=== PATIENT | male | born 1965 | race Caucasian/White ===

== ENCOUNTER 2018-09-28 10:26 | Observation (INO) | payer OTHER ==
--- NOTE | 2018-09-28 10:56 | ERPHSYRPT ---
- History of Present Illness Time Seen by Provider: 09/28/18 10:46 Historian: patient Exam Limitations: no limitations Patient Subjective Stated Complaint: pt here for chest pain to left side of chest, that occ. goes to left arm and jaw, pain off and on for several days now. nitro helps at times, this bout of cp started while pt was shopping at [email or web address], Triage Nursing Assessment: pt alert, resp easy,skin w/d/p. slight edema to lower left leg, chest clear Physician History: The patient is a 53-year-old male complaining of intermittent chest pain for the last 3 or 4 days. Typically the chest pain will be like a sharp knife sticking him in the left side of his chest. The pain will last about 5 minutes. He may have 2 or 3 episodes in one day. He'll feel slightly short of breath. He denies nausea or sweating. Sometimes the chest pain will radiate to his left jaw and left arm. Just before arrival he was on a scooter and [facility] when he had another episode of chest pain. He took one nitroglycerin without much relief. His chest pain was initially a 9 out of 10. After 1 nitroglycerin his chest pain was a 5 out of 10. He did not take any more nitroglycerin. He took a baby aspirin this morning. His past medical history is significant for diabetes, high cholesterol, CAD, cardiac stent placement, back pain, back surgery. He had been taking a medicine for hypertension but stopped taking it last week. He did not tell his local doctor nor did he tell his plastic finisher about this. Timing/Duration: day(s) (4), intermittent, sudden, improved Activities at Onset: none Quality: sharpness, stabbing Location: substernal Chest Pain Radiation: neck, arm Severity of Pain-Max: severe Severity of Pain-Current: moderate Modifying Factors: Improves With: nitroglycerin Associated Symptoms: shortness of breath, No nausea, No vomiting, No cough, No diaphoresis Prior Chest Pain/Cardiac Workup: angina Nitro Today/Relief: 0.4 mg x 1, provided at home Aspirin Treatment Today: 81 mg x 1 Allergies/Adverse Reactions: bupropion HCl [From Wellbutrin] Allergy (Severe, Verified 09/28/18 10:39) Hives Home Medications: Aspirin 81 mg PO DAILY 10/31/14 [History] Metformin HCl 1000 mg [Glucophage 1000 MG] 1,000 mg PO BID 07/31/14 [History] Aspirin/Acetaminophen/Caffeine [Headache Relief Tablet] 2 each PO .PRN 11/28/16 [History] Glyburide Micronized 3 mg [Glynase 3 MG] 6 mg PO BID 11/28/16 [History] Insulin Glargine [Lantus Insulin] 20 unit SQ DAILY 11/28/16 [History] Atorvastatin Calcium [Lipitor] 40 mg DAILY 09/28/18 [History] Hydrocodone Bit/Acetaminophen [[place] 10-325 Tablet] 1 ea QID 09/28/18 [History] Insulin Glargine,Hum.rec.anlog [Basaglar Kwikpen U-100] 20 units DAILY 09/28/18 [History] Hx Influenza Vaccination/Date Given: No Hx Pneumococcal Vaccination/Date Given: No Immunizations Up to Date: Yes - Review of Systems Constitutional: No Fever, No Chills Eyes: No Symptoms Ears, Nose, & Throat: No Symptoms Respiratory: No Cough, No Dyspnea Cardiac: Chest Pain Abdominal/Gastrointestinal: No Abdominal Pain, No Nausea, No Vomiting, No Diarrhea Genitourinary Symptoms: No Dysuria Musculoskeletal: No Back Pain, No Neck Pain Skin: No Rash Neurological: No Dizziness, No Focal Weakness, No Sensory Changes Psychological: No Symptoms Endocrine: No Symptoms Hematologic/Lymphatic: No Symptoms Immunological/Allergic: No Symptoms All Other Systems: Reviewed and Negative - Past Medical History Pertinent Past Medical History: Yes Neurological History: Migraines ENT History: No Pertinent History Cardiac History: Hypertension, Other Respiratory History: No Pertinent History Endocrine Medical History: Diabetes Type II Musculoskeletal History: Degenerative Disk Disease, Osteoarthritis GI Medical History: No Pertinent History History: No Pertinent History Psycho-Social History: Anxiety, Depression Male Reproductive Disorders: No Pertinent History Other Medical History: chest pain, he sees Dr. Ashraf - Past Surgical History Past Surgical History: Yes Neuro Surgical History: No Pertinent History Cardiac: No Pertinent History Respiratory: No Pertinent History Gastrointestinal: No Pertinent History Genitourinary: No Pertinent History Musculoskeletal: Other Male Surgical History: Vasectomy Other Surgical History: Tonsillectomy, discoscopy - Social History Smoking Status: Current every day smoker How long have you smoked: 30yr Exposure to second hand smoke: Yes Drug Use: none Patient Lives Alone: No - Nursing Vital Signs Nursing Vital Signs: Initial Vital Signs Temperature 98 F 09/28/18 10:27 Pulse Rate 90 09/28/18 10:27 Respiratory Rate 16 09/28/18 10:27 Blood Pressure 163/99 09/28/18 10:27 O2 Sat by Pulse Oximetry 99 09/28/18 10:27 Pain Scale Pain Intensity 1 - Physical Exam General Appearance: no apparent distress Eye Exam: PERRL/EOMI, eyes nml inspection Ears, Nose, Throat Exam: normal ENT inspection, moist mucous membranes Neck Exam: normal inspection, non-tender, supple, full range of motion Respiratory Exam: normal breath sounds, lungs clear, No respiratory distress Cardiovascular Exam: regular rate/rhythm, normal heart sounds Gastrointestinal/Abdomen Exam: soft, No tenderness, No mass Rectal Exam: not done Back Exam: normal inspection, No CVA tenderness, No vertebral tenderness Extremity Exam: normal inspection, normal range of motion Neurologic Exam: alert, oriented x 3, cooperative, normal mood/affect, sensation nml, No motor deficits Skin Exam: normal color, warm, dry SpO2 Interpretation: normal SpO2: 99 Oxygen Delivery: Room Air - Course EKG Interpreted by Me: RATE, Sinus Rhythm, NORMAL AXIS, NORMAL INTERVALS, NORMAL QRS, NORMAL ST-T - Radiology Exams Chest X-ray Interpretation: Interpreted by me, Negative (comp 1V chest .) Ordered Tests: Active Orders 24 hr Category Date Time Status Radio Personality STAT Care 09/28/18 11:04 Active Clean Catch Urine Specimen STAT Care 09/28/18 11:03 Active EKG-ER Only STAT Care 09/28/18 11:03 Active IV Insertion STAT Care 09/28/18 11:03 Active Pulse Oximetry (ED) STAT Care 09/28/18 11:03 Active CHEST 2 VIEWS (PA AND LAT) Stat Exams 09/28/18 11:03 Ordered CBC W DIFF Stat Lab 09/28/18 10:30 Completed CMP Stat Lab 09/28/18 10:30 Received D-DIMER QUANTITATION Stat Lab 09/28/18 10:30 Completed Manual Differential NC Stat Lab 09/28/18 10:30 Completed NT PRO BNP Stat Lab 09/28/18 10:30 Received PROTIME WITH INR Stat Lab 09/28/18 10:30 Completed TROPONIN Q3H Lab 09/28/18 10:30 Received TROPONIN Q3H Lab 09/28/18 14:15 Ordered TROPONIN Q3H Lab 09/28/18 17:15 Ordered TROPONIN Q3H Lab 09/28/18 20:15 Ordered TROPONIN Q3H Lab 09/28/18 23:15 Ordered Urine Triage Profile Stat Lab 09/28/18 11:25 Received Medication Summary Discontinued Medications Generic Name Dose Route Start Last Admin Trade Name Freq PRN Reason Stop Dose Admin Aspirin 243 mg 09/28/18 11:03 09/28/18 11:06 Baby Aspirin 81 Mg Chew PO 09/28/18 11:04 243 mg STAT ONE Administration Nitroglycerin 0.4 mg 09/28/18 11:03 09/28/18 11:06 Nitrostat 0.4 Mg (Ed) SL 09/28/18 11:04 0.4 mg STAT ONE Administration Nitroglycerin 0.4 mg 09/28/18 11:23 09/28/18 11:28 Nitrostat 0.4 Mg (Ed) SL 09/28/18 11:24 0.4 mg STAT ONE Administration Lab/Rad Data: Laboratory Result Diagrams 09/28/18 10:30 09/28/18 10:30 Laboratory Results 09/28/18 09/28/18 09/28/18 Range/Units 11:25 10:30 10:30 WBC (4.0-10.5) K/mm3 RBC (4.1-5.6) M/mm3 Hgb (12.5-18.0) gm/dl Hct (42-50) % MCV (78-100) fl MCH (26-32) pg MCHC (32-36) g/dl RDW (11.5-14.0) % Plt Count (150-450) K/mm3 MPV (6-9.5) fl Segmented Neutrophils (36.-66.) % Band Neutrophils (0.0-2.0) % Lymphocytes (Manual) (24-44) % Monocytes (Manual) (0.0-12.0) % Basophils (Manual) (0.0-1.0) % Platelet Estimate (NORMAL) RBC Morphology PT 11.0 (8.83-12.87) SECONDS INR 0.95 (0.8-3.0) D-Dimer 219 (215-500) ng/mL Sodium (137-145) mmol/L Potassium (3.5-5.1) mmol/L Chloride (98-107) mmol/L Carbon Dioxide (22-30) mmol/L Anion Gap (5-15) MEQ/L BUN (9-20) mg/dL Creatinine (0.66-1.25) mg/dL Estimated GFR ML/MIN Glucose (74-106) mg/dL Calcium (8.4-10.2) mg/dL Total Bilirubin (0.2-1.3) mg/dL AST (17-59) U/L ALT (0-50) U/L Alkaline Phosphatase (38-126) U/L Troponin I < 0.012 (0.000-0.034) ng/mL NT-Pro-B Natriuret Pep (0-900) pg/mL Serum Total Protein (6.3-8.2) g/dL Albumin (3.5-5.0) g/dL Urine Opiates Level POSITIVE (NEGATIVE) Ur Methadone NEGATIVE (NEGATIVE) Urine Barbiturates NEGATIVE (NEGATIVE) Ur Phencyclidine (PCP) NEGATIVE (NEGATIVE) Urine Amphetamine NEGATIVE (NEGATIVE) U Benzodiazepine Level NEGATIVE (NEGATIVE) Urine Cocaine NEGATIVE (NEGATIVE) Urine Marijuana (THC) NEGATIVE (NEGATIVE) 09/28/18 09/28/18 Range/Units 10:30 10:30 WBC 8.3 (4.0-10.5) K/mm3 RBC 4.51 (4.1-5.6) M/mm3 Hgb 13.7 (12.5-18.0) gm/dl Hct 40.1 L (42-50) % MCV 88.9 (78-100) fl MCH 30.4 (26-32) pg MCHC 34.2 (32-36) g/dl RDW 12.8 (11.5-14.0) % Plt Count 295 (150-450) K/mm3 MPV 9.9 H (6-9.5) fl Segmented Neutrophils 52 (36.-66.) % Band Neutrophils 2 (0.0-2.0) % Lymphocytes (Manual) 35 (24-44) % Monocytes (Manual) 10 (0.0-12.0) % Basophils (Manual) 1 (0.0-1.0) % Platelet Estimate NORMAL (NORMAL) RBC Morphology NORMAL PT (8.83-12.87) SECONDS INR (0.8-3.0) D-Dimer (215-500) ng/mL Sodium 143 (137-145) mmol/L Potassium 3.6 (3.5-5.1) mmol/L Chloride 104 (98-107) mmol/L Carbon Dioxide 27 (22-30) mmol/L Anion Gap 14.3 (5-15) MEQ/L BUN 12 (9-20) mg/dL Creatinine 0.56 L (0.66-1.25) mg/dL Estimated GFR > 60.0 ML/MIN Glucose 167 H (74-106) mg/dL Calcium 9.2 (8.4-10.2) mg/dL Total Bilirubin 0.40 (0.2-1.3) mg/dL AST 17 (17-59) U/L ALT 26 (0-50) U/L Alkaline Phosphatase 103 (38-126) U/L Troponin I (0.000-0.034) ng/mL NT-Pro-B Natriuret Pep 95.1 (0-900) pg/mL Serum Total Protein 7.1 (6.3-8.2) g/dL Albumin 4.4 (3.5-5.0) g/dL Urine Opiates Level (NEGATIVE) Ur Methadone (NEGATIVE) Urine Barbiturates (NEGATIVE) Ur Phencyclidine (PCP) (NEGATIVE) Urine Amphetamine (NEGATIVE) U Benzodiazepine Level (NEGATIVE) Urine Cocaine (NEGATIVE) Urine Marijuana (THC) (NEGATIVE) - Progress Progress: improved Air Movement: good Progress Note: 09/28/18 11:25 The patient's chest pain was a 7 of 10. Patient was given 1 nitroglycerin 0.4 mg SL. After 5 minutes, the patient's chest pain was 1 of 10. Patient is given one more nitroglycerin. 09/28/18 11:40 After the second nitroglycerin 0.4 mg SL, the patient's chest pain is now completely resolved. 09/28/18 11:59 I discussed the patient's examination and findings with Dr. Hutton. Dr. Hutton prefers to have the patient stay in the hospital for a rule out chest pain. The patient agrees to stay. Blood Culture(s) Obtained: No Antibiotics given: No Discussed with : Brennen Will see patient in: hospital (observation) Counseled pt/family regarding: lab results, diagnosis, rad results - Departure Time of Disposition: 11:59 Departure Disposition: Observation (per Dr Hutton) Clinical Impression: Chest pain Condition: Stable Critical Care Time: No Referrals: MARGARITA HUTTON [Primary Care Provider] -
[2018-09-28] MEDS ORDERED: Nitrostat 0.4 MG (ED) SL ONE ×2 (11:03→11:23)
[2018-09-28] MEDS ORDERED: BABY ASPIRIN 81 MG CHEW PO ONE (11:03)
[2018-09-28 11:14] LABS: Hematocrit 40.1 % (42-50); Hemoglobin 13.7 gm/dl (12.5-18.0); Mean Cell Volume 88.9 fl (78-100); Mean Corpuscular Hemoglobin 30.4 pg (26-32); Mean Corpuscular Hgb Concent. 34.2 g/dl (32-36); Mean Platelet Volume 9.9 fl (6-9.5); Platelet Count 295 K/mm3 (150-450); Red Blood Count 4.51 M/mm3 (4.1-5.6); Red Cell Distribution Width 12.8 % (11.5-14.0); White Blood Count 8.3 K/mm3 (4.0-10.5)
[2018-09-28 11:30] LABS: INR 0.95 (0.8-3.0)
[2018-09-28 11:41] LABS: ALBUMIN 4.4 g/dL (3.5-5.0); ALKALINE PHOSPHATASE 103 U/L (38-126); ANION GAP 14.3 MEQ/L (5-15); BLOOD UREA NITROGEN 12 mg/dL (9-20); CHLORIDE 104 mmol/L (98-107); Calcium 9.2 mg/dL (8.4-10.2); Carbon Dioxide 27 mmol/L (22-30); Creatinine 1 0.56 mg/dL (0.66-1.25); Glucose 167 mg/dL (74-106); NT PRO BNP 95.1 pg/mL (0-900); Potassium 3.6 mmol/L (3.5-5.1); SGOT/AST 17 U/L (17-59); SGPT/ALT 26 U/L (0-50); SODIUM 143 mmol/L (137-145); Total Protein 7.1 g/dL (6.3-8.2)
[2018-09-28 11:45] LABS: Amphetamine,Urine NEGATIVE (NEGATIVE); Barbiturate,Urine NEGATIVE (NEGATIVE); Benzodiazepine,Urine NEGATIVE (NEGATIVE); Cocaine,Urine NEGATIVE (NEGATIVE); Methadone,Urine NEGATIVE (NEGATIVE); Opiate,Urine POSITIVE (NEGATIVE); PCP,Urine NEGATIVE (NEGATIVE); THC,Urine NEGATIVE (NEGATIVE)
[2018-09-28 11:51] LABS: BAND 2 % (0.0-2.0); Basophil 1 % (0.0-1.0); Lymphocytes 35 % (24-44); Monocyte 10 % (0.0-12.0); Neutrophils 52 % (36.-66.); Platelet Estimate NORMAL (NORMAL); Total Cells Counted 100
[2018-09-28] MEDS ORDERED: Senokot-S Tablet PO PRN (12:22)
[2018-09-28] MEDS ORDERED: Nitrostat 0.4 MG Tablet SL PRN (12:22)
[2018-09-28] MEDS ORDERED: TYLENOL 325 MG PO PRN (12:22)
[2018-09-28] MEDS ORDERED: MILK OF MAGNESIA 30 ML PO PRN (12:22)
[2018-09-28] MEDS ORDERED: MAALOX ES 30 ML UNIT DOSE PO PRN (12:22)
[2018-09-28] MEDS ORDERED: Zofran 4 MG/2 ML VIAL IV PRN (12:22)
[2018-09-28] MEDS ORDERED: Nicoderm CQ 21 MG TOP SCH (13:00)
[2018-09-28] MEDS ORDERED: CAFFEINE PO SCH (14:15)
[2018-09-28] MEDS ORDERED: ACETAMINOPHEN PO SCH (14:15)
[2018-09-28] MEDS ORDERED: ASPIRIN PO SCH (14:15)
[2018-09-28] MEDS ORDERED: NovoLOG Insulin SQ PRN (16:36)
[2018-09-28] MEDS: Glynase 3 MG PO SCH (16:55)
[2018-09-28] MEDS: Glucophage 500 MG PO SCH (16:55)
[2018-09-28] MEDS: Norco 10/325 MG Tablet PO SCH ×2 (16:56→19:13)
[2018-09-28] MEDS ORDERED: Norco 10/325 MG Tablet PO SCH (17:00)
[2018-09-28] MEDS ORDERED: Lantus Insulin SQ SCH (18:00)
--- NOTE | 2018-09-28 21:58 | XRAY ---
Indication: Left sided chest pain 1 year. Comparison: February 07, 2008. PA/lateral chest again demonstrates normal heart and lungs. Bony thorax intact again with mild degenerative changes and old left clavicle fracture. No new/acute findings.
[2018-09-28] MEDS ORDERED: ZOCOR 20MG PO SCH (22:00)
[2018-09-28] MEDS ORDERED: NON-FORMULARY ITEM (Metformin Hcl 1000 Mg [Glucophage 1000 Mg] 1,000 MG) PO SCH (22:00)
[2018-09-29] MEDS: Norco 10/325 MG Tablet PO SCH ×3 (03:22→09:32)
[2018-09-29 04:06] VITALS: O2SAT 94
[2018-09-29 05:42] LABS: Risk Ratio 3.9
[2018-09-29] MEDS: Glucophage 500 MG PO SCH (08:04)
[2018-09-29] MEDS: Glynase 3 MG PO SCH (08:04)
[2018-09-29 08:09] VITALS: BP 113/67; PULSE 76
--- NOTE | 2018-09-29 09:13 | PCM.DCORD ---
- Discharge Discharge Date: 09/29/18 Condition: Good Prescriptions: Continue Metformin HCl 1000 mg [Glucophage 1000 MG] 1,000 mg PO BID Aspirin 81 mg PO DAILY Glyburide Micronized 3 mg [Glynase 3 MG] 6 mg PO BID Insulin Glargine [Lantus Insulin] 20 unit SQ EVENING MEAL Aspirin/Acetaminophen/Caffeine [Headache Relief Tablet] 2 each PO .PRN Hydrocodone Bit/Acetaminophen [[place] 10-325 Tablet] 1 ea QID Atorvastatin Calcium [Lipitor] 40 mg PO DAILY Instructions: Angina (DC) Additional Instructions: Keep appointment on October [address] Hutton Follow up with: MARGARITA HUTTON [Primary Care Provider] - Call for Appointment Forms: Patient Portal Information
[2018-09-29] MEDS ORDERED: Ecotrin 325 MG PO SCH (10:00)
[2018-09-29] MEDS ORDERED: NON-FORMULARY ITEM (Aspirin [Aspirin] 81 MG) PO SCH (10:00)
[2018-09-29] MEDS ORDERED: ECOTRIN 81 MG PO SCH (10:00)
--- NOTE | 2018-10-02 13:57 | SSS ---
DISCHARGE DIAGNOSIS: CHEST PAIN. HOSPITAL COURSE: The patient is a 53 year-old white male with history of diabetes. 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 He has recently seen him in the past couple of months and was told that he has angina. He has an appointment to see his icing and glaze maker the third week of October. The patient reports that he took 1 Nitro before coming in and it did relieve the pain somewhat but he felt due to the severity of the pain that he should come on in. He was given aspirin and two more Nitro in the emergency room which resolved the pain. He has been pain free since that time. PAST MEDICAL HISTORY: Significant for diabetes mellitus type 2 and hyperlipidemia. HOME MEDICATIONS: Aspirin 81 mg a day, Metformin 1,000 mg b.i.d., aspirin 81 mg daily, Glyburide 6 mg b.i.d., Lantus 20 units daily, Lipitor 40 mg a day, PRN Truman and Basaglar 20 units a day. ALLERGIES: BUPROPION HCL. PHYSICAL EXAMINATION: The patient's vital signs on admission showed a temperature 98F, pulse of 90, respiratory rate 16, blood pressure 163/99. O2 saturation 99%. HEENT: Normocephalic, atraumatic. Pupils equal round reactive to light. Extraocular movements intact. Oropharynx is pink and moist. NECK: Supple without lymphadenopathy, thyromegaly or JVD. CHEST: Clear to auscultation. HEART: Regular rate and rhythm without murmurs, rubs or gallops. ABDOMEN: Soft. No palpable masses. EXTREMITIES: Without clubbing, cyanosis or edema. NEUROLOGIC: The patient is alert and oriented x3. LAB DATA AND TESTS: Laboratory studies revealed lipid panel showing LDL of 75, HDL 33, total cholesterol 128. Troponins have all been less than 0.012. Hemoglobin A1C was 8.78. CBC was normal. Metabolic panel showed nonfasting glucose of 167, BUN 12, creatinine 0.56. Metabolic panel was otherwise entirely normal. Urine drug screen was positive for opiates which the patient is currently taking, Truman on a PRN basis. His D-dimer was 219. International normalized ratio was 0.95. His EKG showed him to be in sinus rhythm with no acute changes noted. The patient was felt to be ready for discharge home at this time. He is to continue to take his home medications and instructed to take up to 3 Nitro and 5 baby aspirin at a time should he have recurrence of his chest pain. If he has pain beyond that he is to return to the emergency room. He has an appointment to see me in follow up on 10/08/2018 and an appointment with his icing and glaze maker later in the month of October as well.
== END 2018-09-29 09:35 | disposition home or self-care (01) ==
LOC: ED 10:26 → MED SURG 12:20
PROVIDERS: ADMIT Family Medicine; ATTEND Family Medicine
DX: R07.9 Chest pain, unspecified (principal); I20.9 Angina pectoris, unspecified; E11.9 Type 2 diabetes mellitus without complications; Z79.84 Long term (current) use of oral hypoglycemic drugs; Z79.899 Other long term (current) drug therapy
CPT/HCPCS: 36000; 36415; 71046; 80053; 80061; 80307; 82962; 83036; 83721; 83880; 84484; 85025; 85379; 85610; 93005; 93041; 93268; 99285; G0378; A9270-GY

== ENCOUNTER 2021-01-12 08:31 | Day surgery (SDC) | payer MEDICARE ==
[2021-01-12] MEDS ORDERED: LIDOCAINE HCL 2% 100 MG/5 ML IJ ONE (08:32)
[2021-01-12] MEDS ORDERED: Depo-Medrol 40 MG/ML IM ONE (08:32)
[2021-01-12] MEDS ORDERED: Xylocaine 1% Vial 30 ML PF IJ ONE (08:32)
[2021-01-12] MEDS ORDERED: DIPRIVAN 200 MG/20 ML IV ONE (09:30)
--- NOTE | 2021-01-12 10:08 | XRAY ---
11 seconds fluoroscopy time in surgery for bilateral L3-S1 MBB.
--- NOTE | 2021-01-12 10:18 | XRAY ---
Indication: Bilateral L3-S1 MBB. Intraoperative fluoroscopy provided for 11 seconds. 2 digital spot images submitted for interpretation demonstrates posterior needle tips projecting over the expected left and right L3-S1 nerve roots. Correlate with intraoperative findings/report. Incidental bilateral L3-L4 posterior pedicle screws/spinal rods.
[2021-01-12] MEDS ORDERED: Lactated Ringers 1,000 ML IV ONE (16:09)
== END 2021-01-12 09:52 | disposition home or self-care (01) ==
LOC: SDC-PAIN 08:31
PROVIDERS: ATTEND Psychiatry & Neurology Pain Medicine
DX: M47.816 Spondylosis without myelopathy or radiculopathy, lumbar region (principal); E11.9 Type 2 diabetes mellitus without complications; I10 Essential (primary) hypertension; I25.10 Atherosclerotic heart disease of native coronary artery without angina pectoris; E78.5 Hyperlipidemia, unspecified; F41.8 Other specified anxiety disorders; Z79.899 Other long term (current) drug therapy
CPT/HCPCS: 64493; 64494; 64495; 72100; 77002; 82947; J1030; J2001; J2704

== ENCOUNTER 2021-02-23 07:24 | Day surgery (SDC) | payer MEDICARE ==
[2021-02-23] MEDS ORDERED: BUPIVACAINE 0.5% VIAL IJ ONE (07:25)
[2021-02-23] MEDS ORDERED: Depo-Medrol 40 MG/ML IM ONE (07:25)
[2021-02-23] MEDS ORDERED: DIPRIVAN 200 MG/20 ML IV ONE (08:45)
--- NOTE | 2021-02-23 09:36 | XRAY ---
Indication: Bilateral L3-S1 MBB. Intraoperative fluoroscopy provided for 18 seconds. Single digital spot image submitted for interpretation demonstrates posterior needle tips projecting over the expected left and right L3-S1 nerve roots. Correlate with intraoperative findings/report. Incidental bilateral L3-L4 posterior fusion hardware.
--- NOTE | 2021-02-23 10:47 | XRAY ---
18 seconds fluoroscopy time in surgery for bilateral L3-S1 MBB.
[2021-02-23] MEDS ORDERED: Lactated Ringers 1,000 ML IV ONE (16:17)
== END 2021-02-23 09:27 | disposition home or self-care (01) ==
LOC: SDC-PAIN 07:24
PROVIDERS: ATTEND Psychiatry & Neurology Pain Medicine
DX: M47.816 Spondylosis without myelopathy or radiculopathy, lumbar region (principal); I10 Essential (primary) hypertension; I25.10 Atherosclerotic heart disease of native coronary artery without angina pectoris; F41.9 Anxiety disorder, unspecified; F32.9 Major depressive disorder, single episode, unspecified; E78.5 Hyperlipidemia, unspecified; Z79.899 Other long term (current) drug therapy
CPT/HCPCS: 64493; 64494; 64495; 72020; 77002; 82947; J1030; J2704

== ENCOUNTER 2021-10-26 07:46 | Day surgery (SDC) | payer MEDICARE ==
[2021-10-26] MEDS ORDERED: Depo-Medrol 40 MG/ML IM ONE (07:47)
[2021-10-26] MEDS ORDERED: Sodium Chloride 0.9% 10 ML FLUSH Syringe IJ ONE (07:47)
[2021-10-26] MEDS ORDERED: DIPRIVAN 200 MG/20 ML IV ONE (09:07)
--- NOTE | 2021-10-26 10:02 | XRAY ---
Indication: Right L4-S1 transforaminal PAVEL. Intraoperative fluoroscopy provided for 42 seconds. 4 digital spot image submitted for interpretation demonstrates posterior needle tips projecting over the right L4 and L5 nerve roots. Small amount of contrast injected for needle tip placement. Correlate with intraoperative findings/report. Incidental bilateral L3-L4 posterior spinal fusion hardware.
[2021-10-26] MEDS ORDERED: Lactated Ringers 1,000 ML IV ONE (10:14)
--- NOTE | 2021-10-26 10:30 | XRAY ---
42 seconds of fluoroscopy was used in surgery for a right L4-S1 transforaminal PAVEL.
== END 2021-10-26 09:35 | disposition home or self-care (01) ==
LOC: SDC-PAIN 07:46
PROVIDERS: ATTEND Psychiatry & Neurology Pain Medicine
DX: M54.16 Radiculopathy, lumbar region (principal); I10 Essential (primary) hypertension; E78.5 Hyperlipidemia, unspecified; E11.9 Type 2 diabetes mellitus without complications; Z79.899 Other long term (current) drug therapy
CPT/HCPCS: 64483; 64484; 72100; 77003; 82947; J1030; J2704; Q9966

== ENCOUNTER 2021-11-23 07:55 | Day surgery (SDC) | payer MEDICARE ==
[2021-11-23] MEDS ORDERED: Xylocaine 1% Vial 30 ML PF IJ ONE (07:56)
[2021-11-23] MEDS ORDERED: BUPIVACAINE 0.5% VIAL IJ ONE (07:56)
[2021-11-23] MEDS ORDERED: Depo-Medrol 40 MG/ML IM ONE (07:56)
[2021-11-23] MEDS ORDERED: Lactated Ringers 1,000 ML IV ONE (09:04)
[2021-11-23] MEDS ORDERED: DIPRIVAN 200 MG/20 ML IV ONE ×2 (09:30→09:42)
--- NOTE | 2021-11-23 10:22 | XRAY ---
Indication: Right L3-S1 RFA. Intraoperative fluoroscopy provided for 38 seconds. 4 digital spot images submitted for interpretation demonstrates posterior needle tips projecting over the expected right L3-S1 nerve root. Correlate with intraoperative findings/report. Incidental bilateral L3-L4 posterior spinal fusion hardware.
--- NOTE | 2021-11-23 10:33 | XRAY ---
38 seconds fluoroscopy time in surgery for right L3-S1 RFA.
== END 2021-11-23 10:06 | disposition home or self-care (01) ==
LOC: SDC-PAIN 07:55
PROVIDERS: ATTEND Psychiatry & Neurology Pain Medicine
DX: M47.816 Spondylosis without myelopathy or radiculopathy, lumbar region (principal); E11.9 Type 2 diabetes mellitus without complications; I10 Essential (primary) hypertension; Z79.899 Other long term (current) drug therapy
CPT/HCPCS: 64635; 64636; 72100; 77002; 82947; J1030; J2001; J2704

== ENCOUNTER 2021-12-07 07:56 | Day surgery (SDC) | payer MEDICARE ==
[2021-12-07] MEDS ORDERED: Xylocaine 1% Vial 30 ML PF IJ ONE (08:55)
[2021-12-07] MEDS ORDERED: BUPIVACAINE 0.5% VIAL IJ ONE (08:55)
[2021-12-07] MEDS ORDERED: Depo-Medrol 40 MG/ML IM ONE (08:55)
[2021-12-07] MEDS ORDERED: Lactated Ringers 1,000 ML IV ONE (09:00)
[2021-12-07] MEDS ORDERED: DIPRIVAN 200 MG/20 ML IV ONE ×2 (09:22→09:31)
--- NOTE | 2021-12-07 11:28 | XRAY ---
Indication: Left L3-S1 RFA. Intraoperative fluoroscopy provided for 59 seconds. 3 digital spot image submitted for interpretation demonstrates posterior needle tips projecting over the expected left L3-S1 nerve roots. Correlate with intraoperative findings/report. Incidental bilateral L3-L4 posterior spinal fusion hardware.
--- NOTE | 2021-12-07 12:30 | XRAY ---
59 second of fluoroscopy was used in surgery for a left L3-S1 RFA.
== END 2021-12-07 10:00 | disposition home or self-care (01) ==
LOC: SDC-PAIN 07:56
PROVIDERS: ATTEND Psychiatry & Neurology Pain Medicine
DX: M47.819 Spondylosis without myelopathy or radiculopathy, site unspecified (principal); E11.9 Type 2 diabetes mellitus without complications; I10 Essential (primary) hypertension; Z79.899 Other long term (current) drug therapy
CPT/HCPCS: 64635; 64636; 72100; 77002; 82947; J1030; J2001; J2704

== ENCOUNTER 2023-12-12 08:59 | Day surgery (SDC) | payer MEDICARE ==
[2023-12-12] MEDS ORDERED: BUPIVACAINE 0.5% VIAL IJ ONE (09:00)
[2023-12-12] MEDS ORDERED: LIDOCAINE HCL 1% 50 MG/5 ML VL PF IJ ONE (09:00)
[2023-12-12] MEDS ORDERED: Depo-Medrol 40 MG/ML IM ONE (09:00)
[2023-12-12] MEDS ORDERED: DIPRIVAN 200 MG/20 ML IV ONE ×2 (12:23→12:41)
[2023-12-12] MEDS ORDERED: Lactated Ringers 1,000 ML IV ONE (15:02)
--- NOTE | 2023-12-12 15:20 | XRAY ---
Indication: Right L3-S1 RFA. Intraoperative fluoroscopy provided for 28 seconds. 3 digital spot images submitted for interpretation demonstrates posterior needle tips projecting over the expected right L3-S1. Correlate with intraoperative findings/report. Incidental bilateral posterior L3-L4 fusion hardware
--- NOTE | 2023-12-12 16:46 | XRAY ---
28 seconds of fluoroscopy was used in surgery for a right L3-S1 RFA.
== END 2023-12-12 13:05 | disposition home or self-care (01) ==
LOC: SDC-PAIN 08:59
PROVIDERS: ATTEND Psychiatry & Neurology Pain Medicine
DX: M47.816 Spondylosis without myelopathy or radiculopathy, lumbar region (principal); E11.9 Type 2 diabetes mellitus without complications
CPT/HCPCS: 64635; 64636; 72100; 77002; 82947; J1030; J2001; J2704

== ENCOUNTER 2023-12-26 09:07 | Day surgery (SDC) | payer MEDICARE ==
[2023-12-26] MEDS ORDERED: LIDOCAINE HCL 1% 50 MG/5 ML VL PF IJ ONE (09:08)
[2023-12-26] MEDS ORDERED: Depo-Medrol 40 MG/ML IM ONE (09:08)
[2023-12-26] MEDS ORDERED: BUPIVACAINE 0.5% VIAL IJ ONE (09:08)
[2023-12-26] MEDS ORDERED: DIPRIVAN 200 MG/20 ML IV ONE ×2 (11:03→11:18)
[2023-12-26] MEDS ORDERED: Lactated Ringers 1,000 ML IV ONE (11:13)
--- NOTE | 2023-12-26 12:07 | XRAY ---
Indication: Left L3-S1 RFA. Intraoperative fluoroscopy provided for 54 seconds. 3 digital spot image submitted for interpretation demonstrates posterior needle tips projecting over expected left L3-S1 nerve roots. Correlate with intraoperative findings/report. Incidental bilateral posterior L3-L4 fusion hardware.
--- NOTE | 2023-12-26 12:09 | XRAY ---
54 seconds of fluoroscopy was used in surgery for a left L3-S1 RFA.
== END 2023-12-26 11:35 | disposition home or self-care (01) ==
LOC: SDC-PAIN 09:07
PROVIDERS: ATTEND Psychiatry & Neurology Pain Medicine
DX: M47.816 Spondylosis without myelopathy or radiculopathy, lumbar region (principal); E11.9 Type 2 diabetes mellitus without complications
CPT/HCPCS: 64635; 64636; 72100; 77002; 82947; J1030; J2001; J2704